=== PATIENT | male | born 2000 | race Caucasian/White ===

== ENCOUNTER 2024-05-19 14:07 | Emergency (ER) | payer OTHER, SELFPAY ==
[2024-05-19 14:25] VITALS: BP 126/87; PULSE 97; RESP 20; TEMP 36.8; O2SAT 100; BMI 27.6
--- NOTE | 2024-05-19 14:29 | PD.EDANIML ---
ED Animal Bite RME/HPI General Chief Complaint: Animal Bite Stated Complaint: Bite from a wild cat Time Seen by Provider: 05/19/24 14:13 Source: patient, RN notes reviewed and old records reviewed Arrival date/time: 05/19/24 14:07 Mode of arrival: ambulatory Limitations: no limitations RME / HPI RME / HPI narrative: 23yom presents to ED for cat bite that occurred today. Patient states a barn cat bit his bilateral hands, patient was wearing gloves at time of injury. Reports puncture wounds to right thumb and left hand. No redness, swelling, bleeding or drainage reported. Patient scrubbed hands with soap and water immediately after bites. Last tetanus approx 7 years ago. Related Data Previous Rx's ?Medication ?Instructions ?Recorded zolmitriptan 2.5 mg disintegrating 2.5 mg PO Q4HR PRN migraine 09/10/20 tablet (Zomig ZMT) headache #10 tabs ondansetron 4 mg oral soluble film 4 mg PO Q6H PRN nausea and 07/16/22 vomiting #7 ea amoxicillin 875 mg-potassium 1 tab PO BID 10 days #20 tabs 05/19/24 clavulanate 125 mg tablet Allergies Allergy/AdvReac Type Severity Reaction Status Date / Time diazepam [From Valium] Allergy Anaphylaxis Verified 07/16/22 20:53 midazolam [From Versed] Allergy Unresponsiv Verified 07/16/22 20:53 e Review of Systems Review of Systems Systems Reviewed: All systems reviewed, normal except as documented Integumentary/Breasts Skin/Breast: Denies erythema and Denies skin pain Comments: Reports puncture wound ED Exam General Limitations: Present no limitations General appearance: Present alert and in no apparent distress Head Head exam: Present atraumatic and normocephalic Eye Eye exam: Present normal appearance, PERRL and EOMI ENT ENT exam: Present normal exam and mucous membranes moist Neck Neck exam: Present normal inspection and full ROM Chest Chest inspection: Present normal inspection and symmetric chest wall rise Respiratory Respiratory exam: Present normal lung sounds bilaterally; Absent respiratory distress Cardiovascular Cardiovascular exam: Present regular rate and normal rhythm Extremities Exam Extremities exam: Present full ROM and normal capillary refill; Absent tenderness Neurological Exam Neurological exam: Present alert and oriented X3 Psychiatric Psychiatric exam: Present normal affect and normal mood Skin Skin exam: Present other (puncture wounds x2 to left hand, x2 right thumb. No erythema, swelling, bleeding or drainage) Course Quality Measures none Orders Category Date Time Status Tet,Diphth,Pertuss(Acell)-Tdap [Boostrix Vacc] Med 05/19/24 14:29 Discontinued 0.5 ml IMI .ONCE ONE Vital Signs Vital signs: Vital Signs Temperature 98.3 F 05/19/24 14:25 Pulse Rate 97 05/19/24 14:25 Respiratory Rate 20 05/19/24 14:25 Blood Pressure 126/87 H 05/19/24 14:25 Pulse Oximetry (%) 100 05/19/24 14:25 Oxygen Delivery Method Room Air 05/19/24 14:25 Animal Bite MDM Narrative MDM Narrative:: 23yom presents to ED for cat bite that occurred today. Patient states a barn cat bit his bilateral hands, patient was wearing gloves at time of injury. Reports puncture wounds to right thumb and left hand. No redness, swelling, bleeding or drainage reported. Patient scrubbed hands with soap and water immediately after bites. Last tetanus approx 7 years ago. Exam findings c/w multiple small puncture wounds. No evidence of infection at this time. Patient is neurovascularly intact. Home wound care discussed, tetanus updated. Reviewed statistics and low risk of rabies from cats; however, rabies prophylaxis was offered if desired, patient declined. Stable for discharge, strict RT ED precautions given for s/sx of infection. Patient data External records reviewed:: [facility] previous records (07/16/2022 ED visit for influenza) Clinical information provided by:: patient Social determinants that could affect healthcare access:: none Patient has the following chronic illnesses:: None How is presenting disease/condition affected by chronic disease/condition?: no chronic disease Evaluation data The following diagnostics were reviewed and interpreted by me:: other (specify) (None) Lab and/or radiology exams considered but not ordered:: Hand x-rays Interpretation Summary: na Medications / Prescriptions Medications or Prescriptions considered but not ordered:: None Medication administrations:: Medication Administration History Discontinued Medications Diphtheria/Tetanus/Acell Pertussis (Diphth,Pertuss(Acell),Tet Vac 0.5 Ml Vial) 0.5 ml IMi .ONCE ONE Stop: 05/19/24 14:30 Last Admin: 05/19/24 15:11 Dose: 0.5 ml Documented By: Above medication administered in ED Consultations Consultation(s) initiated? (list below): No Diagnosis Differential diagnosis animal bite: cat bite and other (Laceration, avulsion, abrasion, puncture wound) Most likely diagnosis given after review of the tests above:: Cat bite, puncture wound Admission Indicated Admission indicated?: not indicated Admission Request Was there a request for admission?: No Disposition Plan Disposition Plan: Discharge Discharge Attestation Discharge Attestation: The patient and all family members were given an opportunity to ask questions and understood the discharge instructions. Discharge instructions specifically effects, indications for sooner follow up or return to the emergency department, and the expected course of current diagnosis. Patient condition: Stable Discharge Plan Plan Patient Disposition: HOME (Self Care) Patient condition on transfer: Stable Prescriptions/Referrals Prescriptions/Med Rec: New amoxicillin-pot clavulanate 875-125 mg tablet 1 tab PO BID 10 Days Qty: 20 0RF No Action zolmitriptan [Zomig ZMT] 2.5 mg tablet,disintegrating 2.5 mg PO Q4HR PRN (Reason: migraine headache) Qty: 10 0RF Rx Instructions: do not exceed 4 doses per 24 hrs ondansetron 4 mg film 4 mg PO Q6H PRN (Reason: nausea and vomiting) Qty: 7 0RF Referrals: Danii Frank [employer] [Primary Care Provider] - In 1 week Problem List Clinical Impression: Cat bite, Puncture wound of hand Patient/Caregiver Discharge Instructions Education Materials: ED Cat Bite Print Language: Romansh Stand Alone Forms: Jahaira Award Info., Patient Portal Info Letter PA/DIANE Supervising Physician PA/DIANE Supervising Physician: Daya
[2024-05-19] MEDS: DIPHTH,PERTUSS(ACELL),TET VAC 0.5 ML VIAL IMi (15:11)
== END 2024-05-19 15:52 | disposition home or self-care (01) ==
PROVIDERS: Emergency Provider Emergency Medicine; PCP Registered Nurse Wound Care
DX: S61.051A Open bite of right thumb without damage to nail, initial encounter (principal); W55.01XA Bitten by cat, initial encounter; Z23 Encounter for immunization
CPT/HCPCS: 90471; 90715; 99282